=== PATIENT | male | born 1955 | race Caucasian/White ===

== ENCOUNTER 2022-02-07 10:47 | Outpatient (CLI) | payer OTHER, SELFPAY ==
--- NOTE | ~2022-02-07 | CT_ITS ---
EXAMINATION: CT lung screening DATE: 02/07/2022 11:14 INDICATION: History of tobacco dependence TECHNIQUE: Computed tomography (CT) of the chest was performed without intravenous contrast. The dose -length product was 88.08 mGy-cm. Automated exposure control and iterative reconstruction technique w ere employed. COMPARISON: None FINDINGS: Heart size is normal. No significant pleural or pericardial effusion. There is atherosclero sis of the aorta and coronary arteries. There is fatty infiltration of the liver. There is multiple m ild wedge compression deformities of the midthoracic spine accentuated thoracic kyphosis. There is a 4 mm nodule in the left upper lobe, coronal image 51. There are a few small additional nodules measur ing 2 mm or less. No endobronchial lesions. No pneumothorax.. IMPRESSION: 1. Lung-RADS category 2: Benign appearance or behavior. Continue annual screening with noncontrast lo w-dose chest CT in 12 months. Reviewed, dictated and finalized at location A. IMPRESSION: 1. Lung-RADS category 2: Benign appearance or behavior. Continue annual screeni ng with noncontrast low-dose chest CT in 12 months.
== END 2022-02-07 10:48 | disposition home or self-care (01) ==
PROVIDERS: PCP Nurse Practitioner Family; Visit Provider Nurse Practitioner Family
DX: Z12.2 Encounter for screening for malignant neoplasm of respiratory organs (principal); Z87.891 Personal history of nicotine dependence
CPT/HCPCS: 71271

== ENCOUNTER 2023-02-13 08:16 | Outpatient (CLI) | payer OTHER, SELFPAY ==
--- NOTE | ~2023-02-13 | NM_ITS ---
NM bone scan whole body DATE: 02/13/2023 12:23 INDICATION: Prostate cancer TECHNIQUE: Delayed static whole body images following intravenous injection of 26.5 mCi 99m technetiu m MDP COMPARISON: 02/13/2023 CT abdomen pelvis FINDINGS: No significant abnormal radiotracer uptake is noted in the axial skeleton to suggest any ev idence of metastatic disease. Likely degenerative. Increased uptake at the right ankle region and shoulders, likely degenerative. Bilateral renal activity is noted. IMPRESSION: No scintigraphic evidence of skeletal metastatic disease Reviewed, dictated and finalized at Location A. Reviewed, dictated and finalized at location L.
--- NOTE | ~2023-02-13 | CT_ITS ---
. EXAMINATION: CT abdomen pelvis w con DATE: 02/13/2023 09:26 INDICATION: Prostate cancer TECHNIQUE: Computed tomography (CT) of the abdomen and pelvis was performed with 100 CC Omnipaque 350 intravenous contrast. Automated exposure control and iterative reconstruction technique were employe d. Exam dose: 535.09 mGy-cm total exam DLP. COMPARISON: None. FINDINGS: The lung bases are clear. Normal heart size. No pericardial or pleural effusion. The liver, gallbladder, bile ducts, spleen, pancreas, pancreatic duct and adrenal glands are unremark able. Approximately 1.5 - 2 mm posterior upper pole left renal probable cyst. No suspicious renal space occ upying mass lesion or urinary tract calculus or hydroureteronephrosis is detected. The urinary bladde r is unremarkable. There is moderate prostatomegaly. The seminal vesicles appear normal. No intraperitoneal or retroperitoneal or pelvic mass lesion or lymphadenopathy is noted. There is atherosclerotic calcification of the abdominal aorta but no aneurysm. Small bilateral fat-containing inguinal hernias and small fat-containing umbilical hernia. Small sliding hiatal hernia. Small duodenal diverticulum. Normal appendix. No bowel obstruction. Minimal colonic diverticulosis; no CT evidence of diverticulit is. No intraperitoneal free air. Severe degenerative disease and minimal retrolisthesis at L5-S1. Chronic mild anterior wedging of L1, possibly due to Scheuermann's disease or less likely old keisha marimar fracture. Degenerative spurring of the lower thoracic spine. No prostate osteosclerotic metastases are noted. IMPRESSION: Moderate prostate enlargement; no abdominal or pelvic lymphadenopathy or osteosclerotic metastatic lesions are identified Reviewed, dictated and finalized at Location [facility]. Reviewed, dictated and finalized at location L. IMPRESSION: Moderate prostate enlargement; no abdominal or pelvic lymphadenopa thy or osteosclerotic metastatic lesions are identified
[2023-02-13 09:07] LABS: Estimated Glomerular Filt Rate > 60
== END 2023-02-13 08:17 | disposition home or self-care (01) ==
PROVIDERS: PCP Nurse Practitioner Family; Visit Provider Urology
DX: C61 Malignant neoplasm of prostate (principal)
CPT/HCPCS: 74177; 78306; A9503; Q9967

== ENCOUNTER 2023-04-09 07:50 | Outpatient (CLI) | payer OTHER, SELFPAY ==
--- NOTE | ~2023-04-09 | MR_ITS ---
EXAMINATION: MR pelvis wo/w con DATE: 04/09/2023 09:10 INDICATION: Malignant neoplasm of prostate. TECHNIQUE: Magnetic resonance imaging (MRI) of the pelvis was performed without and with 17 mL MultiH ance intravenous contrast. COMPARISON: CT abdomen and pelvis 02/13/2023 FINDINGS: There is diverticulosis of the colon without evidence of diverticulitis. The prostate is mildly enlar ged. There is a left inguinal hernia containing fat. There are no pathologically enlarged lymph nodes . There is no osseous metastatic disease. IMPRESSION: 1. Mildly enlarged prostate. No evidence of metastatic disease. Reviewed, dictated and finalized at location A.
== END 2023-04-09 07:51 | disposition home or self-care (01) ==
PROVIDERS: PCP Family Medicine; Visit Provider Radiology Radiation Oncology
DX: C61 Malignant neoplasm of prostate (principal); N40.0 Benign prostatic hyperplasia without lower urinary tract symptoms
CPT/HCPCS: 72197; A9577

== ENCOUNTER 2025-03-10 10:20 | Outpatient (CLI) | payer OTHER, SELFPAY ==
--- NOTE | 2025-03-10 10:32 | EST_ITS ---
Patient Info Name: Rob Petersen Age: 69 years : 1955 Gender: Male Ht: 76 in Wt: 180 lbs BSA: 2.09 m2 HR: 75 bpm BP: 154 / 94 mmHg Exam Date: 03/10/2025 10:32 AM Patient Status: O Admit Date: 03/10/2025 Exam Type: CA stress test treadmill A treadmill exercise stress test was performed. Staff Attending Provider: Leonor Chacon Exercise Technologist: Anabell Dorsey Exercise Physician: Yohan Caballero DO Summary 1. 1. Negative Randy exercise stress test for ischemic ST changes by ECG criteria. 2. 2. Reduced functional capacity, achieving 5.3 METs of workload. 3. 3. Baseline hypertension. 4. 4. Appropriate HR response to exercise. 5. 5. Appropriate HR recovery at 1 minute post exercise. 6. 6. No imaging with stress testing. 7. 7. Patient informed of the above results. Protocol: Randy Stress ECG Details Stage: REST Duration (min): 3 min : 5 sec Speed (mph): 0.0 Grade (%): 0 HR (bpm): 75 SBP (mmHg): 154 DBP (mmHg): 94 METS: --- Stage: REST Duration (min): 10 min : 28 sec Speed (mph): 0.0 Grade (%): 0 HR (bpm): 77 SBP (mmHg): 154 DBP (mmHg): 94 METS: --- Stage: STAGE 1 Duration (min): 1 min : 0 sec Speed (mph): 1.7 Grade (%): 10 HR (bpm): 93 SBP (mmHg): 154 DBP (mmHg): 94 METS: --- Stage: STAGE 1 Duration (min): 2 min : 0 sec Speed (mph): 1.7 Grade (%): 10 HR (bpm): 103 SBP (mmHg): 154 DBP (mmHg): 94 METS: --- Stage: STAGE 1 Duration (min): 3 min : 0 sec Speed (mph): 1.7 Grade (%): 10 HR (bpm): 119 SBP (mmHg): 144 DBP (mmHg): 104 METS: --- Stage: STAGE 2 Duration (min): 0 min : 26 sec Speed (mph): 2.5 Grade (%): 12 HR (bpm): 127 SBP (mmHg): 144 DBP (mmHg): 104 METS: --- Stage: RECOVERY Duration (min): 0 min : 33 sec Speed (mph): 0.0 Grade (%): 0 HR (bpm): 115 SBP (mmHg): 144 DBP (mmHg): 104 METS: --- Stage: RECOVERY Duration (min): 1 min : 33 sec Speed (mph): 0.0 Grade (%): 0 HR (bpm): 106 SBP (mmHg): 144 DBP (mmHg): 104 METS: --- Stage: RECOVERY Duration (min): 2 min : 33 sec Speed (mph): 0.0 Grade (%): 0 HR (bpm): 95 SBP (mmHg): 144 DBP (mmHg): 104 METS: --- Stage: RECOVERY Duration (min): 3 min : 33 sec Speed (mph): 0.0 Grade (%): 0 HR (bpm): 87 SBP (mmHg): 162 DBP (mmHg): 87 METS: --- Stage: RECOVERY Duration (min): 4 min : 33 sec Speed (mph): 0.0 Grade (%): 0 HR (bpm): 83 SBP (mmHg): 181 DBP (mmHg): 87 METS: --- Stage: RECOVERY Duration (min): 5 min : 33 sec Speed (mph): 0.0 Grade (%): 0 HR (bpm): 83 SBP (mmHg): 181 DBP (mmHg): 87 METS: --- Stage: RECOVERY Duration (min): 6 min : 33 sec Speed (mph): 0.0 Grade (%): 0 HR (bpm): 80 SBP (mmHg): 181 DBP (mmHg): 87 METS: --- Stage: RECOVERY Duration (min): 7 min : 6 sec Speed (mph): 0.0 Grade (%): 0 HR (bpm): --- SBP (mmHg): 136 DBP (mmHg): 87 METS: --- Rest HR: 77 bpm Peak HR: 129 bpm Rest Sys BP: 154 mmHg Peak Sys BP: 181 mmHg Max Pred HR: 149 bpm % Max Pred HR: 87 % Target HR: 127 bpm Max RPP: 23,349 bpm*mmHg Nunez Score: -7 Termination Reason: Reached target heart rate or workload Cardiac Symptoms: Shortness of breath Max ST Seg Deviation: -2.10 mm Total Time: 3 min : 26 sec Rest Campbell BP: 94 mmHg Peak Campbell BP: 87 mmHg Angina Score: None Total METS: 5.3 Resting ECG Sinus rhythm. Stress ECG No ST changes. Arrhythmias NOne. Report Signatures
--- OUTSIDE RECORDS SUMMARY | 2025-03-10 10:35 | XMS_ITS | Clinical Summary ---
Author Organization [facility] Address [facility] [place] [address] Care Team Providers Care English Drawer Name Role Phone Jalen Garcia MD Primary Care Provider [phone] Allergies No known active allergies Medications folic acid 1 MG tabletIndication s:Alcohol dependence with unspecified alcohol-induced disorder ([facility] HHS/HCC),Folate deficiency Take 1 tablet (1 mg total) by mouth daily. 90 tablet 3 01/02/2022 Active vitamin B-1 (VITAMIN B-1) 100 MG tabletIndication s:Alcohol dependence with unspecified alcohol-induced disorder ([facility] HHS/HCC),Thiamin deficiency Take 1 tablet (100 mg total) by mouth daily. 90 tablet 01/02/2022 Active TAMSULOSIN HCL OR Active HYDROcodone-acet aminophen (NORCO) 5-325 MG tabletIndication s:Acute Pain < 7 Day Supply Take 1 tablet by mouth every 6 (six) hours as needed. Indications : Acute Pain < 7 Day Supply 20 tablet 09/04/2023 Active Active Problems Problem Noted Date Diagnosed Date History of Raynaud's syndrome 12/28/2021 Cigarette nicotine dependenc e with nicotine-induced disorder 12/28/2021 Alcohol dependence with unsp ecified alcohol-induced disorder ([facility] HHS/HCC) 12/28/2021 Essential hypertension 12/28/2021 Chronic bilateral low back pain without sciatica 12/28/2021 Encounters Date Type Department Care Team Description 02/21/2025 2:54 PM CDT - 02/21/2025 11:59 PM CDT Hospital Encounter [facility] [place] [address] [place] [address] Leonor Funk APNP Discharge Disposition: Home or Self Care (Routine Discharge) 02/21/2025 Travel from Last 3 Months Family History Medical History Relation Comments Cancer Brother Cancer Father Relation Status Comments Brother Father Social History Tobacco Use Types Packs/Day Years Used Date Smoking Tobacco: Every Day Cigarettes 2 40 Tobacco Cessation:Ready to Q uit: Not Asked; Counseling Given: Not Answered Alcohol Use Standard Drinks/Week Comments Yes 6.7 (1 standard drink = 0.6 oz p ure alcohol) 4 PHQ-2 Answer Date Recorded PHQ-2 Score - If the patient scores above 3, please move on to questions 3-9 0 12/28/2021 Sex and Gender Information Value Date Recorded Sex Assigned at Not on file Legal Sex Male 7:51 PM CDT Gender Identity Not on file Sexual Orientation Not on file Last Filed Vital Signs Vital Sign Reading Time Taken Comments Blood Pressure 135/93 09/04/2023 11:15 AM [employer] Pulse 77 09/04/2023 11:15 AM [employer] Temperature 36.6 C (97.8 F) 09/04/2023 11:15 AM [employer] Respiratory Rate 18 09/04/2023 11:15 AM [employer] Oxygen Saturation 100% 09/04/2023 11:15 AM [employer] Inhaled Oxygen Concentration - - Weight 86.2 kg (190 lb) 09/04/2023 8:27 AM [employer] Height 193 cm (6' 4) 09/04/2023 8:27 AM [employer] Body Mass Index 23.13 09/04/2023 8:27 AM [employer] Plan of Treatment Health Maintenance Due Date Last Done Comments Colorectal Cancer Screening Colonoscopy (10 Years) 1955 Hepatitis C 10/31/1971 DTaP, Tdap and Td Vaccines ( 1 - Tdap) 1972 Pneumococcal Vaccine: 50+ Years (1 of 2 - PCV) 1972 Zoster Vaccines (1 of 2) 10/31/2003 Annual Medicare Wellness Visit 2018 COVID-19 Vaccine (3 - 2023-2 5 season) 2024 12/24/2020, 12/02/2020 RSV Immunization or 60+ Years (1 - 1-dose 75+ series) 2028 Meningococcal B Vaccine Aged Out No l onger eligible based on patient's age to complete this topic Meningococcal Vaccine Aged Out No gabby rose marie eligible based on patient's age to complete this topic RSV Immunizations Under 20 Months Aged Out No longer eligible b ased on patient's age to complete this topic Procedures Procedure Name Priority Date/Time Associated Diagnosis Comments CT LUNG SCREENING Routine 02/21/2025 2:5 7 PM CDT Nicotine dependence, cigarettes, uncomplicated from Last 3 Months Results * CT LUNG SCREENING (02/21/2025 2:57 PM CDT) Anatomical Region Laterality Modality Chest Computed Tomogra phy 02/24/2025 2:43 PM CDT Impressions 02/24/2025 2:46 PM CDT IMPRESSION: 1. LUNG-RADS category 2: Benign appearance or behavior-nodules with a very low likelihood of becoming a clinically active cancer due to size or lack of growth. 2. LUNG-RADS category S: Negative, no new/unknown potentially significant incidental findings requiring urgent additional evaluation. 3. Other incidental findings as above. RECOMMENDATIONS: Follow-up LDCT Chest in 12 months (on or around 02/21/2026). Ordered By: LEONOR FUNK Interpreted By: Todd Barcenas MD, 02/24/2025 2:43 PM Narrative 02/24/2025 2:46 PM CDT [id number] [place] [address] EXAM: LUNG SCREENING LOW-DOSE CT THORAX WITHOUT CONTRAST DATE: 02/21/2025 2:57 PM HISTORY: Asymptomatic patient meeting NCCN high-risk criteria for lung screening. COMPARISON: CTA chest 09/04/2023. TECHNIQUE: Noncontrast, helical, low-dose CT (LDCT) chest per standard departmental protocol. A dose lowering technique was used for this procedure, which may include, but is not limited to, dose reduction technique, automated exposure control, iterative reconstruction, ALARA (As Low As Reasonably Achievable), or Image Gently techniques. FINDINGS: Lung Screening Specific (LUNG-RADS): 2 mm nodule right lower lobe axial image 134. New.. LungRADS 2. Potentially Significant Incidentals (LUNG-RADS category S): None. Pulmonary Incidentals: Trace emphysematous changes. Other Incidentals: Mild to moderate multilevel thoracic spondylosis. Mild to moderate atherosclerotic plaque of the thoracic aorta. Moderate coronary artery calcifications. Small to moderate hiatal hernia. Procedure Note Todd Barcenas MD - 02/24/2025 [facility] [address] [place] [address] EXAM: LUNG SCREENING LOW-DOSE CT THORAX WITHOUT CONTRAST DATE: 02/21/2025 2:57 PM HISTORY: Asymptomatic patient meeting NCCN high-risk criteria for lungscreening. COMPARISON: CTA chest 09/04/2023. TECHNIQUE: Noncontrast, helical, low-dose CT (LDCT) chest per standarddepartmental protocol. A dose lowering technique was used for this procedure, which may include,but is not limited to, dose reduction technique, automated exposurecontrol, iterative reconstruction, ALARA (As Low As ReasonablyAchievable), or Image Gently techniques. FINDINGS: Lung Screening Specific (LUNG-RADS): 2 mm nodule right lower lobe axial image 134. New.. LungRADS 2. Potentially Significant Incidentals (LUNG-RADS category S): None. Pulmonary Incidentals: Trace emphysematous changes. Other Incidentals: Mild to moderate multilevel thoracic spondylosis. Mildto moderate atherosclerotic plaque of the thoracic aorta. Moderatecoronary artery calcifications. Small to moderate hiatal hernia. IMPRESSION: 1. LUNG-RADS category 2: Benign appearance or behavior-nodules with a verylow likelihood of becoming a clinically active cancer due to size or lackof growth. 2. LUNG-RADS category S: Negative, no new/unknown potentially significantincidental findings requiring urgent additional evaluation. 3. Other incidental findings as above. RECOMMENDATIONS: Follow-up LDCT Chest in 12 months (on or around02/21/2026). 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
== END 2025-03-10 10:21 | disposition home or self-care (01) ==
PROVIDERS: PCP Nurse Practitioner Family; Visit Provider Nurse Practitioner Family
DX: I25.10 Atherosclerotic heart disease of native coronary artery without angina pectoris (principal); R06.02 Shortness of breath
CPT/HCPCS: 93017